=== PATIENT | female | born 1955 | race Asian ===

== ENCOUNTER 2019-04-04 08:13 | Inpatient (IN) | payer OTHER ==
[~2019-04-04] VITALS: Ht 154.9 cm; Wt 61.9 kg
[2019-04-04] MEDS ORDERED: IV NORMAL SALINE 1,000ML 1,000 ML IV ONE (08:45)
--- NOTE | 2019-04-04 08:48 | EKG ---
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
[2019-04-04 08:59] LABS: BASO % 0 % (0-3); EOS # 0.1 x10^3/uL (0.0-0.7); EOS % 1 % (0-3); HEMATOCRIT 39.9 % (36.0-47.0); HEMOGLOBIN 13.8 g/dL (12.0-15.5); LYMPH # 1.2 x10^3/uL (1.0-4.8); LYMPH % 12 % (24-48); MEAN CORPUSCULAR HEMOGLOBIN 29 pg (25-35); MEAN CORPUSCULAR HGB CONC 35 g/dL (31-37); MEAN CORPUSCULAR VOLUME 85 fL (79-100); MONO # 0.2 x10^3/uL (0.0-1.1); MONO % 2 % (0-9); NEUT # 8.3 x10^3uL (1.8-7.7); NEUT % 85 % (31-73); PLATELET COUNT 336 x10^3/uL (140-400); RED BLOOD COUNT 4.69 x10^6/uL (3.50-5.40); RED CELL DISTRIBUTION WIDTH 12.5 % (11.5-14.5); WHITE BLOOD COUNT 9.8 x10^3/uL (4.0-11.0)
[2019-04-04] MEDS ORDERED: ONDANSETRON PF 4 MG/2 ML VIAL. IVP ONE (09:00)
[2019-04-04] MEDS ORDERED: MORPHINE SULFATE 2 MG/ML DISP.SYRIN. IV ONE ×2 (09:00→10:45)
--- NOTE | 2019-04-04 09:03 | PHYS DOC ---
Adult General Chief Complaint Chief Complaint: ABDOMINAL PAIN HPI HPI 64-year-old female presents with epigastric abdominal pain. The patient was playing the slot machines at a casino last night around midnight she began have epigastric pain. The pain is a squeezing sensation. It is an 8 out of 10. She stevens s had several formed bowel movements, but still feels like she might need to go. She denies dysuria or increased shortness frequency. She does have a history of kidney stones in the past. She still has her gallbladder. No history of cardiac problems. She has not had a stress test or cardiac catheter. She is diabetic. She denies fever or chills. Review of Systems Review of Systems Constitutional: Denies fever or chills [] Eyes: Denies change in visual acuity, redness, or eye pain [] HENT: Denies nasal congestion or sore throat [] Respiratory: Denies cough or shortness of breath [] Cardiovascular: No additional information not addressed in HPI [] GI: Epigastric abdominal pain. Denies nausea, vomiting, bloody stools or diarrhea [] : Denies dysuria or hematuria [] Musculoskeletal: Denies back pain or joint pain [] Integument: Denies rash or skin lesions [] Neurologic: Denies headache, focal weakness or sensory changes [] Endocrine: Denies polyuria or polydipsia [] All other systems were reviewed and found to be within normal limits, except as documented in this note. Current Medications Current Medications Current Medications Medications (Trade) Dose Ordered Sig/Beka Start Time Stop Time Status Last Admin Dose Admin Sodium Chloride 1,000 ml @ 1,000 mls/hr 1X ONCE 04/04/19 08:45 04/04/19 09:44 UNV Physical Exam Physical Exam Constitutional: Well developed, obese, well nourished, no acute distress, non- toxic appearance. [] HENT: Normocephalic, atraumatic, bilateral external ears normal, oropharynx moist, no oral exudates, nose normal. [] Eyes: PERRLA, EOMI, conjunctiva normal, no discharge. [] Neck: Normal range of motion, no tenderness, supple, no stridor. [] Cardiovascular:Heart rate regular rhythm, no murmur [] Lungs & Thorax: Bilateral breath sounds clear to auscultation [] Abdomen: Bowel sounds normal, soft, moderate epigastric tenderness, no masses, no pulsatile masses. [] Skin: Warm, dry, no erythema, no rash. [] Back: No tenderness, no CVA tenderness. [] Extremities: No tenderness, no cyanosis, no clubbing, ROM intact, no edema. [] Neurologic: Alert and oriented X 3, normal motor function, normal sensory function, no focal deficits noted. [] Psychologic: Affect normal, judgement normal, mood normal. [] Current Patient Data Lab Results Laboratory Tests Test 04/04/19 08:43 White Blood Count 9.8 x10^3/uL (4.0-11.0) Red Blood Count 4.69 x10^6/uL (3.50-5.40) Hemoglobin 13.8 g/dL (12.0-15.5) Hematocrit 39.9 % (36.0-47.0) Mean Corpuscular Volume 85 fL (79-100) Mean Corpuscular Hemoglobin 29 pg (25-35) Mean Corpuscular Hemoglobin Concent 35 g/dL (31-37) Red Cell Distribution Width 12.5 % (11.5-14.5) Platelet Count 336 x10^3/uL (140-400) Neutrophils (%) (Auto) 85 % (31-73) H Lymphocytes (%) (Auto) 12 % (24-48) L Monocytes (%) (Auto) 2 % (0-9) Eosinophils (%) (Auto) 1 % (0-3) Basophils (%) (Auto) 0 % (0-3) Neutrophils # (Auto) 8.3 x10^3uL (1.8-7.7) H Lymphocytes # (Auto) 1.2 x10^3/uL (1.0-4.8) Monocytes # (Auto) 0.2 x10^3/uL (0.0-1.1) Eosinophils # (Auto) 0.1 x10^3/uL (0.0-0.7) Basophils # (Auto) 0.0 x10^3/uL (0.0-0.2) EKG EKG Sinus rhythm, rate 70, normal axis, no ST elevations or depressions.[] Radiology/Procedures Radiology/Procedures [] Impressions: EXAM: CT ABDOMEN/PELVIS WITH CONTRAST. HISTORY: Epigastric abdominal pain. TECHNIQUE: Computed tomography of the abdomen and pelvis was performed after the intravenous administration of iodinated contrast. COMPARISON: None. FINDINGS: Lung windows through the visualized portions of the bases reveal mild atelectasis. Bone windows reveal no suspicious lesions. 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 The uterus is surgically absent. The appendix is not inflamed. There is no small bowel obstruction. The pancreas, spleen, gallbladder and liver are unremarkable. There are no pathologically enlarged lymph nodes. A calculus in the right renal lower pole measures 7 mm. Calculi in the left lower pole measure up to 4 mm. There is urothelial thickening along the upper tracts on the right greater than left. There are no ureteral calculi. IMPRESSION: 1. No cause for acute pain is identified. 2. Bilateral renal calculi measure up to 7 mm on the right. Urothelial thickening on the right greater than left suggest ascending inflammation. Correlate with urinalysis. *One or more of the following individualized dose reduction techniques were utilized for this examination: 1. Automated exposure control. 2. Adjustment of the mA and/or kV according to patient size. 3. Use of iterative reconstruction technique. Electronically signed by: Keturah Piper MD (04/04/2019 10:18 AM) [facility] DICTATED AND SIGNED BY: JUAN PIPER MD DATE: 04/04/19 1018 CC: ASHLEY DA SILVA DO; MARTA ISABEL DO, MPH ~ Course & Med Decision Making Course & Med Decision Making Pertinent Labs and Imaging studies reviewed. (See chart for details) The patient's CT scan is negative for acute findings. No CT evidence of pancreatitis. She does have large renal calculi. Her urinalysis is negative for UTI. Her CBC is unremarkable. Her other labs show an elevated lipase of 750. Early pancreatitis could be the cause of her pain. Her blood sugar is 274, but her anion gap is normal. I have given the patient 2 mg of morphine and 4 mg of Zofran IV. I will admit her to the hospital for pancreatitis. I spoke with Dr. Woodruff and he has accepted the patient for admission. [] Dragon Disclaimer Dragon Disclaimer This electronic medical record was generated, in whole or in part, using a voice recognition dictation system. Departure Departure: Impression: Primary Impression: Pancreatitis Disposition: ADMITTED INPATIENT Admitting Physician: Sara Woodruff Condition: STABLE Referrals: MARTA ISABEL DO, MPH (PCP) Problem Qualifiers Primary Impression: Pancreatitis Chronicity: acute Pancreatitis type: unspecified pancreatitis type Acute pancreatitis complication: no infection or necrosis Qualified Codes: K85.90 - Acute pancreatitis without necrosis or infection, unspecified ASHLEY DA SILVA DO Apr 04, 2019 09:03
[2019-04-04 09:12] LABS: ALBUMIN 4.4 g/dL (3.4-5.0); CALCIUM 9.9 mg/dL (8.5-10.1); CREATININE 1.1 mg/dL (0.6-1.0); GFR 50.3; POTASSIUM 3.3 mmol/L (3.5-5.1); TOTAL BILIRUBIN 0.6 mg/dL (0.2-1.0); TOTAL PROTEIN 8.9 g/dL (6.4-8.2)
[2019-04-04] MEDS ORDERED: IOHEXOL 300 MG/ML 75 ML VIAL. IV ONE (09:30)
[2019-04-04 10:08] LABS: BILIRUBIN,URINE NEG (NEG); CLARITY,URINE CLEAR; COLOR,URINE YELLOW; GLUCOSE,URINE 500 mg/dL (NEG)
[2019-04-04 10:09] LABS: NITRITE,URINE NEG (NEG); UROBILINOGEN,URINE 0.2 mg/dL (0.2 mg/dL)
[2019-04-04 10:10] LABS: BACTERIA,URINE 0 /HPF (0-FEW); SQUAMOUS EPITHELIAL CELL,UR OCC /LPF
--- NOTE | 2019-04-04 10:21 | RAD ---
EXAM: CT ABDOMEN/PELVIS WITH CONTRAST. HISTORY: Epigastric abdominal pain. TECHNIQUE: Computed tomography of the abdomen and pelvis was performed after the intravenous administration of iodinated contrast. COMPARISON: None. FINDINGS: Lung windows through the visualized portions of the bases reveal mild atelectasis. Bone windows reveal no suspicious lesions. 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 The uterus is surgically absent. The appendix is not inflamed. There is no small bowel obstruction. The pancreas, spleen, gallbladder and liver are unremarkable. There are no pathologically enlarged lymph nodes. A calculus in the right renal lower pole measures 7 mm. Calculi in the left lower pole measure up to 4 mm. There is urothelial thickening along the upper tracts on the right greater than left. There are no ureteral calculi. IMPRESSION: 1. No cause for acute pain is identified. 2. Bilateral renal calculi measure up to 7 mm on the right. Urothelial thickening on the right greater than left suggest ascending inflammation. Correlate with urinalysis. *One or more of the following individualized dose reduction techniques were utilized for this examination: 1. Automated exposure control. 2. Adjustment of the mA and/or kV according to patient size. 3. Use of iterative reconstruction technique. Electronically signed by: Keturah Piper MD (04/04/2019 10:18 AM) [facility]
[2019-04-04] MEDS ORDERED: MORPHINE SULFATE 2 MG/ML DISP.SYRIN. IV PRN (10:45)
[2019-04-04] MEDS ORDERED: ONDANSETRON PF 4 MG/2 ML VIAL. IV PRN (10:45)
[2019-04-04] MEDS ORDERED: IV DEXTROSE 5% - 0.9 % NACL 1,000 ML IV ONE (11:00)
[2019-04-04] MEDS ORDERED: FEXO180T16 PO (11:16)
[2019-04-04] MEDS ORDERED: VERA180T6 PO (11:16)
[2019-04-04] MEDS ORDERED: TRET20CR5 TOP (11:16)
[2019-04-04] MEDS ORDERED: GABA300C8 PO (11:16)
[2019-04-04] MEDS ORDERED: FLUT16SP21 NS (11:16)
[2019-04-04] MEDS ORDERED: TELM20TA7 PO (11:16)
[2019-04-04] MEDS ORDERED: FERR325T3 PO (11:16)
[2019-04-04] MEDS ORDERED: SIMV20TA3 PO (11:16)
[2019-04-04] MEDS ORDERED: LATA2.5D3 OU (11:16)
[2019-04-04] MEDS ORDERED: GLIP5TAB22 PO (11:16)
[2019-04-04] MEDS ORDERED: ESCI10TA2 PO (11:16)
[2019-04-04 11:35] VITALS: BP 171/83
[2019-04-04] MEDS: POTASSIUM CL 40MEQ D5-0.45NACL 1,000 ML IV SCH ×2 (12:52→22:45)
[2019-04-04 15:25] VITALS: BP 167/80
[2019-04-04 20:06] VITALS: BP 181/82
[2019-04-04] MEDS ORDERED: ENALAPRILAT 2.5 MG/2 ML VIAL. IV PRN ×2 (20:15→20:45)
[2019-04-04 23:30] VITALS: BP_SYST 126; BP_SYST 86; BP_DIAS 55; BP_DIAS 67
--- NOTE | 2019-04-05 01:11 | HP ---
ADMIT DATE: 04/04/2019 HISTORY OF PRESENT ILLNESS: The patient is a 64-year-old [place] female patient who came to the Emergency Room complaining of epigastric pain. The patient was playing a slot machine at the [employer] last night around midnight. She began having epigastric pain. Pain is squeezing sensation. It is rated as 8/10. She has had several formed bowel movements, still feels like that she might need to go. Denied any or dysuria. Denied any increased frequency, had a history of kidney stones in the past. She still has her gallbladder. No history of cardiac problems. She has not had any stress test or cardiac catheter. She has multiple medical problems. She was evaluated in the Emergency Room and her lab work revealed that she has markedly elevated lipase at 750 and also had hypokalemia, hyponatremia, and was admitted for pain management. The patient stated that she has never had similar symptoms before. PAST MEDICAL HISTORY: Significant for type 2 diabetes mellitus, hypertension, and hyperlipidemia. She has also chronic anemia, nephrolithiasis, and osteoarthritis as well as glaucoma. PAST SURGICAL HISTORY: Significant for surgery for glaucoma, had had a total abdominal hysterectomy, bilateral salpingo-oophorectomy, and colonoscopy. ALLERGIES: She is allergic to NITROFURANTOIN and BACTRIM. MEDICATIONS: She is currently on following medications: She is on fexofenadine 180 mg once a day, ferrous sulfate 325 mg once a day, simvastatin 20 mg at bedtime, verapamil 180 mg tablet extended release once a day, telmisartan 20 mg daily, gabapentin 300 mg daily, escitalopram oxalate 10 mg once a day, Flonase 1 spray to each nostril twice a day, latanoprost 1 drop to both eyes daily, glipizide extended release 5 mg once a day and tretinoin cream applied topically daily for itching. FAMILY HISTORY: She has 7 brothers and 6 sisters. Her older brother was born with cerebral palsy. Her younger sister had a stroke and . Her father at the age of 62. Mother at age of 80. SOCIAL HISTORY: She is . She has 1 son and 4 adopted children. She does not smoke, drink alcohol or use recreational drugs. 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 REVIEW OF SYSTEMS: The patient denied any blurring of vision or cataract. She has glaucoma, but denied any macular degeneration. Denied any earache, tinnitus or sensorineural deafness. Denied any nosebleeds, stuffy nose or postnasal drip. Denied any sore throat, sore tongue, toothache, hoarseness of voice, or difficulty swallowing. Denied any nausea, vomiting, diarrhea or constipation. Denied any hematemesis, melena or hematochezia. Denied any dysuria, frequency or hematuria. Denied any chest pain, shortness of breath, orthopnea, or paroxysmal nocturnal dyspnea. Denied any cough, phlegm or hemoptysis. Denied any dizziness, lightheadedness, or vertigo. PHYSICAL EXAMINATION: GENERAL: On arrival to the Emergency Room, she looked well and was clearly in no apparent respiratory distress. No pallor, jaundice, cyanosis, or thyromegaly. No jugular venous distention. No lower limb edema. VITAL SIGNS: Her heart rate was 76, blood pressure was 171/83, temperature was 97.9, respiratory rate was 20, and oxygen saturation was 98%. HEAD, EYES, EARS, NOSE AND THROAT: Showed normocephalic, atraumatic. NECK: Supple. HEART: Showed normal first and second heart sounds. No gallop or murmur. CHEST: Clear to auscultation. No crepitation or rhonchi. ABDOMEN: Distended, soft with tenderness mostly in the epigastric area. No guarding or rigidity. No organomegaly. All hernial orifices intact. Bowel sounds normal. NEUROLOGIC: She was awake, alert, responding appropriately. All cranial nerves are intact. EXTREMITIES: She moves all extremities without difficulty. She ambulates without assistance or assistive devices. LABORATORY DATA: Showed that her serum sodium was 135, potassium 3.3, chloride 95, bicarbonate 26, anion gap of 14, BUN 20, creatinine 1.1, estimated GFR was 50 mL per minute. Her glucose was 274, calcium was 9.9. Total bilirubin, AST, ALT, alkaline phosphatase were normal. Her total protein was 8.9, albumin was 4.4. Serum lipase was 750. Her white cell count was 9800, hemoglobin 13.8, hematocrit 39.9, MCV 85 and platelet count of 336,000 with normal manual differential. Urinalysis was essentially unremarkable. The urine was yellow, clear with a pH of 7, specific gravity 1.025. There was large amount of protein, large amount of glucose. The urine was negative for ketones, small amount of blood, negative for nitrite, negative for leukocyte esterase. There is 1-2 rbc's, 5-10 wbc's, and no bacteria. She has had a CT scan of the abdomen and pelvis, which showed that lung windows through the visualized portion of the bases revealed mild atelectasis. Bone windows reveal no suspicious lesions. There is a grade 1 anterolisthesis of L5-S1 from lateral L5 pars interarticularis defects. The uterus is surgically absent, appendix not inflamed. There is no small-bowel obstruction. The pancreas, spleen, gallbladder, and liver are unremarkable. There are no pathologically enlarged lymph nodes. Calculus in the right renal lower pole measures 7 mm and calculi in the left lower pole measures up to 4 mm. There is urothelial thickening along the upper tracts on the right greater than left. There are no ureteral calculi. In summary, no cause for acute pain identified. The bilateral renal calculi measures up to 7 mm in the right and urothelial thickening on the right greater than left suggest ascending inflammation correlate with urinalysis. ASSESSMENT AND PLAN: The patient was admitted with an acute pancreatitis. She has also mild hypokalemia and hyponatremia. My plan is to switch her IV fluid and monitor her labs closely and obviously once her lipase subsides, we will start her on a clear liquid diet, advance as tolerated. MARTI LESLIE MD DR: SACHA/onofre JOB#: [id number] / [id number]
[2019-04-05 05:50] VITALS: BP 122/74
[2019-04-05 06:48] LABS: HEMATOCRIT 36.5 % (36.0-47.0); HEMOGLOBIN 12.6 g/dL (12.0-15.5); RED BLOOD COUNT 4.25 x10^6/uL (3.50-5.40); RED CELL DISTRIBUTION WIDTH 12.7 % (11.5-14.5); WHITE BLOOD COUNT 7.5 x10^3/uL (4.0-11.0)
[2019-04-05 07:11] LABS: ALBUMIN 3.4 g/dL (3.4-5.0); ALBUMIN/GLOBULIN RATIO 0.9 (1.0-1.7); CALCIUM 8.7 mg/dL (8.5-10.1); CREATININE 0.9 mg/dL (0.6-1.0); GFR 63.4; POTASSIUM 4.6 mmol/L (3.5-5.1); TOTAL BILIRUBIN 0.6 mg/dL (0.2-1.0); TOTAL PROTEIN 7.2 g/dL (6.4-8.2)
[2019-04-05] MEDS: POTASSIUM CL 40MEQ D5-0.45NACL 1,000 ML IV SCH (08:45)
[2019-04-05 11:04] VITALS: BP 147/64
[2019-04-05] MEDS ORDERED: TRETINOIN TOP PRN (11:45)
--- NOTE | 2019-04-05 12:58 | RAD ---
Right upper quadrant ultrasound without comparison for right upper quadrant abdominal pain, history of pancreatitis. TECHNIQUE AND FINDINGS: Real-time grayscale and color Doppler evaluation of the right upper quadrant abdominal organs is performed. The liver is normal in contour and echogenicity, with no focal parenchymal abnormalities. No intra or extrahepatic biliary ductal dilatation. Common bile duct measures 6 mm in diameter. The gallbladder is partially fluid distended and is notable for 2 nonshadowing dependent masslike intraluminal abnormalities which most likely represent gall bladder polyps. The largest 5 mm in diameter and the second is 4 mm in diameter. No shadowing stones are identified. No gallbladder wall thickening or pericholecystic fluid. No sonographic Ramos sign. The IVC is patent. Portal vein is patent and hepatopedal. Visualized portions of the pancreas are unremarkable. The right kidney measures 10.1 x 5.6 x 4.0 cm and is free of any hydronephrosis or perinephric fluid. No focal parenchymal abnormalities. There are calyceal nonobstructing calculi at both the superior and inferior pole. The largest at the inferior pole measures 7 mm. IMPRESSION: 1. No sonographic evidence of acute cholecystitis. 2. Gallbladder polyps as described. 3. Nonobstructing right nephrolithiasis. Electronically signed by: Chago Noonan MD (04/05/2019 12:56 PM) [id number]
--- NOTE | 2019-04-05 14:54 | DS ---
DATE OF DISCHARGE: HOSPITAL COURSE: The patient is a 64-year-old [place] female patient who was admitted with upper abdominal pain; however, she denied any nausea or vomiting. Denied any diarrhea or constipation. Denied any chills, rigors, or fever. Denied any dysuria, frequency or hematuria. She was evaluated in the Emergency Room and was found to have elevated lipase up to 750. She was also found to be mildly hypokalemic, hyponatremic, slightly dehydrated and therefore, the patient was initially kept n.p.o., started on IV fluid, IV pain medication as well as antiemetic, and she did actually very well. Her lipase has trended down. Her serum sodium and potassium have improved and has had no further abdominal pain. We started her on a clear liquid diet and advanced as tolerated. She has tolerated her regular diet and plan was discharge her to home to follow with her primary care physician. We did a CT scan of the abdomen and pelvis, showed no cause for acute pain identified. She has bilateral renal calculi measuring up to 4-7 mm on the right. She has urothelial thickening on the right greater than left suggesting ascending inflammation, correlate with urinalysis. However, urinalysis showed only 5-10 wbc's. There is small amount of blood, negative for nitrite and we did actually have also arranged for abdominal ultrasound, which showed that there is no sonographic evidence of acute cholecystitis, gallbladder polyps are described nonobstructing, right nephrolithiasis and there is no intra or extrahepatic biliary ductal dilatation. Common bile duct measures only 6 mm in diameter and the patient was basically discharged home to follow with her primary care physician. PHYSICAL EXAMINATION: GENERAL: When I saw her this afternoon, she looked well and was clearly in no apparent respiratory distress. No pallor, jaundice, cyanosis, lymphadenopathy, or thyromegaly. No jugular venous distention. No limb edema. VITAL SIGNS: Her heart rate was 64, blood pressure was 147/64, temperature was 98.3, respiratory rate 20, and oxygen saturation was 97%. HEAD, EYES, EARS, NOSE AND THROAT: Showed normocephalic, atraumatic. NECK: Supple. HEART: Showed normal first and second heart sounds. No gallop or murmur. CHEST: Clear to auscultation. No crepitation or rhonchi. ABDOMEN: Distended, soft, nontender. No guarding or rigidity. No organomegaly. All hernial orifice intact. Bowel sounds normal. NEUROLOGIC: She was awake, alert, responding appropriately. All cranial nerves are intact. She moves extremities without difficulty. She ambulates without assistance or assistive devices. Her intake over the last 24 hours was 2678, no output was recorded. LABORATORY DATA: This morning showed a white cell count 7500, hemoglobin 12, hematocrit 36, MCV 86 and platelet count 303,000. Serum sodium 139, potassium 4.6, chloride 104, bicarbonate 28, anion gap of 7, BUN 9, creatinine 0.9, estimated GFR was 63 mL per minute. Glucose was 147, calcium was 8.7. Total bilirubin, AST, ALT, alkaline phosphatase were normal. Total protein was 7.2, albumin was 3.4 and her lipase was down to 483,000. DISCHARGE MEDICATIONS: The patient was discharged home to continue on following medications: Losartan potassium 25 mg once a day, cetirizine 10 mg once a day, citalopram hydrobromide for Celexa 20 mg daily, verapamil 180 mg once a day, latanoprost 1 drop to both eyes once a day, glipizide 5 mg once a day, gabapentin 300 mg daily, Flonase 1 spray to both nostrils once a day, ferrous sulfate 325 mg with breakfast, atorvastatin calcium 10 mg once a day. FINAL DISCHARGE DIAGNOSES: Acute pancreatitis, the cause of which is not clear. The patient stated that she does not drink alcohol on a regular basis and she had ultrasound. It showed no evidence of acute cholecystitis or cholelithiasis, and she has multiple other medical problems including type 2 diabetes mellitus, hypertension, hyperlipidemia, chronic anemia, nephrolithiasis, osteoarthritis as well as glaucoma. The patient was advised to check her fasting lipid profile, the potential cause of her pancreatitis. Her serum calcium was normal and she is not on any medication that might be the cause of her acute pancreatitis. The CT scan showed that she has some bilateral renal calculi measuring up to 7 mm on the right, urothelial thickening on the right greater than left suggesting ascending inflammation, correlated with urinalysis. She has calculus in the right renal lower pole measuring up to 7 cm, calculi in the left lower pole and urothelial thickening along the upper tract on the right greater than left. There are no ureteral calculi. MARTI LESLIE MD DR: Yamileth JOB#: [id number] / [id number]
[2019-04-05] MEDS ORDERED: ATORVASTATIN CALCIUM 10 MG TABLET. PO SCH (21:00)
[2019-04-06] MEDS ORDERED: FERROUS SULFATE 325 MG TABLET. PO SCH (08:00)
[2019-04-06] MEDS ORDERED: CETIRIZINE HCL 10 MG TABLET PO SCH (09:00)
[2019-04-06] MEDS ORDERED: LOSARTAN 25 MG TABLET. PO SCH (09:00)
[2019-04-06] MEDS ORDERED: FLUTICASONE 50MCG/NASAL SPRAY 16GM BOTTLE. NS SCH (09:00)
[2019-04-06] MEDS ORDERED: GABAPENTIN 300 MG CAPSULE. PO SCH (09:00)
[2019-04-06] MEDS ORDERED: LATANOPROST 0.005% OPHTH SOLUTION 2.5ML BOTTLE. OU SCH (09:00)
[2019-04-06] MEDS ORDERED: VERAPAMIL SR 180 MG TABLET.ER. PO SCH (09:00)
[2019-04-06] MEDS ORDERED: CITALOPRAM 20 MG TABLET. PO SCH (09:00)
== END 2019-04-05 15:39 | disposition home or self-care (01) | DRG 439 ==
LOC: ER 08:13 → 1 SOUTH 10:52
PROVIDERS: ADMIT Internal Medicine; ATTEND Internal Medicine
DX: K85.90 Acute pancreatitis without necrosis or infection, unspecified (principal); E87.1 Hypo-osmolality and hyponatremia; E11.9 Type 2 diabetes mellitus without complications; E78.5 Hyperlipidemia, unspecified; I10 Essential (primary) hypertension; E87.6 Hypokalemia; Z82.3 Family history of stroke; H40.9 Unspecified glaucoma; N20.0 Calculus of kidney; D64.9 Anemia, unspecified; Z88.8 Allergy status to other drugs, medicaments and biological substances; M19.90 Unspecified osteoarthritis, unspecified site; E86.0 Dehydration; Z87.442 Personal history of urinary calculi; Z90.710 Acquired absence of both cervix and uterus
CPT/HCPCS: 36415; 74177; 76705; 80053; 81001; 82947; 83690; 84484; 85025; 85027; 87086; 93005; 96361; 96374; 96375; 96376; J2270; J2405; J3010; J7042; Q9967; 99285-25; J7030

== ENCOUNTER 2019-07-15 11:16 | Emergency (ER) | payer OTHER ==
[~2019-07-15] VITALS: Ht 154.9 cm; Wt 65.3 kg
[~2019-07-15 11:16] MED LIST: ESCI10TA2 PO; FERR325T3 PO; FEXO180T16 PO; FLUT16SP21 NS; GABA300C8 PO; GLIP5TAB22 PO; LATA2.5D3 OU; SIMV20TA18 PO; TELM20TA7 PO; TRET20CR5 TOP; VERA180T6 PO
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
[2019-07-15 13:43] VITALS: BP 130/76
== END 2019-07-15 13:40 | disposition home or self-care (01) ==
LOC: ER 11:16
DX: M54.5 Low back pain (principal); M25.512 Pain in left shoulder; E11.9 Type 2 diabetes mellitus without complications; K21.9 Gastro-esophageal reflux disease without esophagitis; E78.5 Hyperlipidemia, unspecified; I10 Essential (primary) hypertension; E03.9 Hypothyroidism, unspecified; Z90.710 Acquired absence of both cervix and uterus; Z88.2 Allergy status to sulfonamides; Z88.8 Allergy status to other drugs, medicaments and biological substances
CPT/HCPCS: 72080; 73030; 99284

== ENCOUNTER → 2019-08-20 | Outpatient (CLI) | payer OTHER ==
--- NOTE | 2019-08-20 15:56 | RAD ---
EXAM: Lumbar spine CT without contrast. HISTORY: Pain. TECHNIQUE: Computed tomographic images of the lumbar spine were obtained without contrast. Multiplanar reformatting was performed. *One or more of the following individualized dose reduction techniques were utilized for this examination: 1. Automated exposure control. 2. Adjustment of the mA and/or kV according to patient size. 3. Use of iterative reconstruction technique. COMPARISON: None. FINDINGS: There is grade 1 anterolisthesis of L5 on S1, measuring 5 mm. There are pars interarticularis defects at this level. There is grade 1 anterolisthesis of L3 on L4, measuring 3 mm. There is degenerative endplate remodeling with disc space narrowing, osteophytosis, Schmorl's node formation and vacuum phenomenon at L5-S1. There is additional endplate remodeling at the remainder of the visualized lumbar levels and lower thoracic levels. There are few small endplate Schmorl's nodes. There are few nonobstructing bilateral renal stones. The largest stone is seen within the inferior right kidney measuring 9 mm. There is no hydronephrosis. There is normal caliber aorta. There is no lymphadenopathy. At L1-L2, there is endplate remodeling. There is mild left facet arthropathy. There is no stenosis. At L2-L3, there is a disc bulge and endplate remodeling. There is mild left facet arthropathy. There is mild left greater than right foraminal stenosis. There is mild central canal stenosis. At L3-L4, there is a disc bulge and endplate remodeling. There is moderate facet arthropathy. There is grade 1 anterolisthesis. There is moderate bilateral foraminal stenosis. There is moderate central canal stenosis. At L4-L5, there is a disc bulge and endplate osteophytosis. There is mild right facet arthropathy. There is mild right and minimal left foraminal stenosis. At L5-S1, there is a posterior central disc protrusion with superior extrusion superimposed on a disc bulge and endplate osteophytosis. There is grade 1 anterolisthesis with pars defects. There is severe bilateral foraminal stenosis. IMPRESSION: 1. Grade 1 anterolisthesis of L5 on S1 with associated pars defects. There is also a lesser degree of grade 1 anterolisthesis of L3 on L4. 2. Multilevel degenerative change involving the lumbar spine, described in detail above. This is associated with mild left greater than right foraminal and central canal stenosis at L2-L3, moderate bilateral foraminal and central canal stenosis at L3-L4, moderate right and minimal left foraminal stenosis at L4-L5, and severe bilateral foraminal stenosis at L5-S1. 3. Bilateral nephrolithiasis. Electronically signed by: Irma Robles MD (08/20/2019 3:53 PM) [id number]
== END ==
LOC: CT 14:57
PROVIDERS: ATTEND Family Medicine
DX: M47.26 Other spondylosis with radiculopathy, lumbar region (principal); M48.07 Spinal stenosis, lumbosacral region; N20.0 Calculus of kidney; M51.27 Other intervertebral disc displacement, lumbosacral region
CPT/HCPCS: 72131